=== PATIENT | male | born 1940 | race Caucasian/White ===

== ENCOUNTER 2016-07-03 05:46 | Inpatient (IN) | payer MEDICARE, OTHER ==
[2016-06-19 11:59] VITALS: BP 110/70
--- NOTE | 2016-07-01 16:23 | HPE ---
DATE OF SCHEDULED ADMISSION: 07/03/2016 HISTORY OF PRESENT ILLNESS: This is a pleasant male with continuing symptomatic right hip osteoarthritis. He has consented for right total hip arthroplasty per Dr. Ryan Pisano. Medically he was evaluated for optimization with Dr. Gonzalez and Dr. Bolaños. Per patient, he was cleared. I am still awaiting documentation. X-rays are consistent with advanced osteoarthritis. ALLERGIES: None known to drugs. CURRENT MEDICATIONS: - irbesartan 300 mg - Eliquis 5 mg - oxycodone acetaminophen 5-325 mg - Xanax - metoprolol succinate ER 25 mg - hydrochlorothiazide 12.5 mg - pravastatin sodium 10 mg MEDICAL PROBLEM LIST: Symptomatic right hip osteoarthritis. Hypertension. Hypercholesteremia. Some sort of vascular event. I asked him if he had a stroke. He states he thinks it was a transient ischemic attack (TIA) and not a legitimate stroke event. SURGICAL HISTORY: Surgical history is pertinent for a right total knee arthroplasty, back surgery, left leg tumor. FAMILY HISTORY: Parents due to natural causes. SOCIAL HISTORY: Denies ever smoking. No ethanol intake or illicit drugs. REVIEW OF SYSTEMS: Denies chest pain, shortness of breath, dyspnea on exertion, fever, chills, malaise, upper respiratory or urinary tract symptoms. PHYSICAL EXAMINATION: Height 5 feet 4 inches. Weight 250. Temperature 97.4, blood pressure 132/60, pulse 72, respirations 20. This is a pleasant obese male in no acute distress. Alert and times three. Mood and affect are appropriate. He is ambulating with favoring of his left lower extremity, antalgia about his right hip. Right hip range of motion is limited with pain throughout range. Bilateral lower extremities are benign, noninfectious looking. Bowel sounds times four. He does have some hardening of the abdomen secondary to central adiposity. Chest rises symmetrically. Lungs: Clear to auscultation. Neck: Supple. Negative jugular venous distention (JVD) or bruits. Normocephalic. EKG: I did not have access to that today. Chest x-ray as read by Suyapa Huston. Impression showed cardiac silhouette is borderline enlarged in size with left ventricular prominence, unchanged. Small amount of bibasilar atelectasis/fibrotic scarring, right greater than left. Sclerotic density projected over right proximal humeral shaft, mostly omitted from view. I then was able to find the EKG, as read by Dr. Shi, which showed sinus bradycardia with first-degree AV block, moderate voltage criteria for LVH, consider normal variant. LABORATORY: Labs showed a high urine auto bacteria 1+. Glucose was 164 fasting. BUN 22, AST/SGOT was 13, alkaline phosphatase 124. Platelet count 127. ESR 25. Platelets were 127. Nasal sinus culture showed few Staphylococcus aureus. IMPRESSION: 1. Symptomatic right hip osteoarthritis. 2. The patient consented for a right total hip arthroplasty per Dr. Ryan Pisano. 3. Medical optimization per Dr. Gonzalez and Dr. Bolaños. 4. appliance service representative to operating room (OR) 2 grams IV Kefzol in OR. 5. Sequential compression device (SCD). 6. Bactroban and Hibiclens wash protocol per positive nasal sinus culture for Methicillin susceptible Staphylococcus aureus. MTDD
[2016-07-03] VITALS (7 sets, daily range): BP systolic 131–148; BP diastolic 63–90
[~2016-07-03] VITALS: Ht 167.6 cm; Wt 115.0 kg
[~2016-07-03 05:46] MED LIST: /PRAV20TA PO; /WARF25TA PO; ADVI200C PO; AMLO5TAB2 PO; ASPI81TA2; ASPI81TA85 PO; ATEN100T PO; ATEN25TA PO; CIPR-250 PO; ELIQ5TAB PO; HYDR12CA PO; IRBE150T12 PO; METF500T PO; METO25TA74 PO; PERC10TA PO; PRAV10TA3 PO; TUMS500C PO; TYLE325T5 PO; ZETI10TA2 PO; ZETI10TA21 PO; [UNRECOGNIZED DRUG - OTHER] OR; amlodipine OR
[2016-07-03] MEDS ORDERED: LR 1,000 ML IV SCH ×2 (06:30→10:15)
[2016-07-03] MEDS ORDERED: COUM1TAB17 PO (06:43)
[2016-07-03] MEDS ORDERED: fentaNYL 100 MCG/2 ML INJECTION (J3010) As Ordered ONE ×3 (07:09→11:32)
[2016-07-03] MEDS ORDERED: BUPIVACAINE HCL 0.25% 30 ML VIAL As Ordered ONE (07:09)
[2016-07-03] MEDS ORDERED: BUPIVACAINE HCL 0.5% 10 ML VIAL As Ordered ONE (07:09)
[2016-07-03] MEDS ORDERED: TRANEXAMIC ACID 100 MG/ML 10ML VIAL As Ordered ONE ×2 (07:09→11:32)
[2016-07-03] MEDS ORDERED: ceFAZolin 1GM INJ (J0690) As Ordered ONE (07:10)
[2016-07-03] MEDS ORDERED: EPINEPHrine INJ 1 MG/ML 1ML VIAL/AMP As Ordered ONE (07:10)
[2016-07-03] MEDS ORDERED: ceFAZolin 2 GM/D5W 50 ML IV BAG (J0690) As Ordered ONE (07:25)
[2016-07-03] MEDS ORDERED: LIDOCAINE 2% INJ 100 MG/5 ML SDV (FOR ANES.) As Ordered ONE (08:04)
[2016-07-03] MEDS ORDERED: PROPOFOL 200 MG/20 ML VIAL As Ordered ONE (08:04)
[2016-07-03] MEDS ORDERED: ePHEDrine SULFATE 25 MG/5 ML(5MG/ML) SYRINGE As Ordered ONE ×2 (08:04→08:08)
[2016-07-03] MEDS ORDERED: MIDAZOLAM INJ 2 MG/2 ML VIAL (J2250) As Ordered ONE (08:04)
[2016-07-03] MEDS ORDERED: PHENYLephrine HCL 500 MCG/5 ML (100MCG/ML) SYRINGE (J2370) As Ordered ONE (08:05)
[2016-07-03] MEDS ORDERED: ceFAZolin 1GM INJ (J0690) IR ONE (08:12)
[2016-07-03] MEDS ORDERED: BUPIVACAINE HCL 0.5% 10 ML VIAL XX ONE (08:12)
[2016-07-03] MEDS ORDERED: fentaNYL 100 MCG/2 ML INJECTION (J3010) XX ONE (08:12)
[2016-07-03] MEDS ORDERED: EPINEPHrine INJ 1 MG/ML 1ML VIAL/AMP XX ONE (08:12)
[2016-07-03] MEDS ORDERED: TRANEXAMIC ACID 100 MG/ML 10ML VIAL XX ONE (08:12)
[2016-07-03] MEDS ORDERED: BUPIVACAINE HCL 0.25% 30 ML VIAL XX ONE (08:12)
[2016-07-03] MEDS ORDERED: DESFLURANE 240 ML INHALANT As Ordered ONE (08:17)
[2016-07-03] MEDS ORDERED: MORPHINE PCA 1MG/ML 100ML CADD As Ordered ONE (09:39)
[2016-07-03] MEDS ORDERED: diphenhydrAMINE INJ 50MG/ML VIAL (J1200) IV PRN (10:15)
[2016-07-03] MEDS ORDERED: MORPHINE PCA 1MG/ML 100ML CADD IV PRN (10:15)
[2016-07-03] MEDS ORDERED: ONDANSETRON 4MG/2ML VIAL (J2405) IV PRN ×2 (10:15)
[2016-07-03] MEDS ORDERED: fentaNYL 100 MCG/2 ML INJECTION (J3010) IV PRN (10:15)
[2016-07-03] MEDS ORDERED: PATIENT IS CURRENTLY ON AN ON-Q PAIN BUSTER PAIN RELIEF SYSTEM XX SCH (10:15)
[2016-07-03] MEDS ORDERED: NALBUPHINE HCL 10 MG/ML AMP (J2300) IV PRN (10:15)
[2016-07-03] MEDS ORDERED: NALOXONE INJ 0.4 MG/1 ML VIAL (J2310) IV PRN (10:15)
[2016-07-03] MEDS ORDERED: PERCOCET 5MG/325MG TAB PO PRN (10:15)
[2016-07-03] MEDS ORDERED: HYDROmorphone HCL 1 MG/ML SYRINGE (J1170) IV PRN (10:15)
[2016-07-03] MEDS ORDERED: EPIDURAL/PCA KEYS XX PRN (10:15)
[2016-07-03] MEDS ORDERED: ACETAMINOPHEN TAB 650MG DOSE (2X325MG) PO PRN (14:15)
[2016-07-03] MEDS ORDERED: FLEET ENEMA PR PRN (14:15)
[2016-07-03] MEDS: D5W/0.45% SODIUM CHLORIDE 1,000 ML IV SCH ×2 (14:39→22:15)
[2016-07-03] MEDS ORDERED: WARFARIN SOD 5 MG TAB PO SCH (17:00)
[2016-07-03] MEDS: PRAVASTATIN 10 MG TAB PO SCH (19:55)
[2016-07-04 02:00] VITALS: BP 137/64
[2016-07-04 06:00] VITALS: BP 154/67
[2016-07-04] MEDS ORDERED: ONDANSETRON 4 MG TAB (S0181) PO PRN (06:15)
[2016-07-04 06:50] LABS: MEAN CORPUSCULAR HEMOGLOBIN 30.4 pg (27.0-33.0); MEAN CORPUSCULAR VOLUME 89.5 fl (80.0-96.0); RED CELL DISTRIBUTION WIDTH 15.1 % (11.5-14.5); WHITE BLOOD COUNT 8.6 K/mm3 (4.0-10.0)
[2016-07-04 06:56] LABS: INR 1.14
[2016-07-04 07:13] LABS: ANION GAP 9 MEQ/L (8-16); BLOOD UREA NITROGEN 16 MG/DL (7-18); CARBON DIOXIDE LEVEL 27 MEQ/L (21-32); CHLORIDE LEVEL 102 MEQ/L (98-107); CREATININE FOR GFR 1.03 MG/DL (0.70-1.30); GLOMERULAR FILTRATION RATE > 60.0 (>42); GLUCOSE, FASTING 210 MG/DL (83-110); POTASSIUM SERUM 3.5 MEQ/L (3.5-5.1); SODIUM LEVEL 138 MEQ/L (136-145)
[2016-07-04] MEDS: METOPROLOL SUCC *XL* 25MG TAB (TopROL *XL*) PO SCH (07:52)
[2016-07-04] MEDS: MOM 30ML SUSPENSION UDC PO SCH (07:52)
[2016-07-04] MEDS: SENOKOT S TAB PO SCH ×2 (07:52→20:32)
[2016-07-04] MEDS: MIRALAX *UNIT DOSE* 17GM PACKET PO SCH (07:52)
[2016-07-04] MEDS: PERCOCET 5MG/325MG TAB PO PRN ×3 (07:54→22:53)
[2016-07-04] MEDS: IRBESARTAN 150 MG TAB PO SCH (09:48)
[2016-07-04 10:00] VITALS: BP 132/60
--- NOTE | 2016-07-04 10:17 | REP ---
RIGHT HIP, POSTOPERATIVE AP AND LATERAL VIEWS: There are no comparisons. There is a total hip arthroplasty with the components tightly applied and in satisfactory positions and alignment. Skin juice are incidentally noted. Unreviewed
[2016-07-04] MEDS ORDERED: HEPARIN SOD (PORCINE) 5000 UNITS/ML VIAL IV PRN (13:30)
--- NOTE | 2016-07-04 13:45 | IPNPDOC ---
Assessment/Plan Date Seen The patient was seen on 07/03/16. Problems Problems: (1) Status post total hip replacement, right Status: Acute Problem Text: elective total hip replacement , by Dr posada , surgery was uneventful. pain control and dvt prophylaxis as per ortho team. (2) LEI on CPAP Status: Chronic (3) HTN (hypertension) Status: Chronic Problem Text: continue metoprolol , irbesartan (4) Pulmonary embolism Onset Date: 07/13/2014 Status: Resolved Problem Text: on eliquis as outpatient , restarting on anticoagulation as per surgeon (5) Morbid obesity Status: Chronic Plan / VTE VTE Prophylaxis Ordered?: Yes Subjective Review of Systems CC/HPI The patient is a 75-year-old male admitted with a reason for visit of Right Hip Arthritis. Events since last encounter no complaints had elective right total hip replacement. no chest pain or sob , no nausea or vomiting. Objective Physical Examination General Exam: Positive: Alert, No Acute Distress Eye Exam: Positive: Conjunctiva & lids normal, EOMI, PERRLA, Negative: Sclera icteric ENT Exam: Positive: Atraumatic, Mucous membr. moist/pink, Pharynx Normal Neck Exam: Positive: Supple, Negative: JVD, thyromegaly Chest Exam: Positive: Clear to auscultation, Normal air movement Heart Exam: Positive: Normal S1, Normal S2, Rate Normal, Regular Rhythm, Negative: Murmurs, Rubs Abdomen Exam: Positive: Normal bowel sounds, Soft, Negative: Hepatospenomegaly, Tenderness Vital Signs/I&O Vital Signs Date Time Temp Pulse Resp B/P Pulse Ox O2 Delivery O2 Flow Rate FiO2 07/03/16 12:54 98.0 66 18 120/58 95 Nasal Cannula 3 GERARDO NOGUEIRA MD Jul 03, 2016 14:30
--- NOTE | 2016-07-04 13:53 | IPNPDOC ---
Assessment/Plan Date Seen The patient was seen on 07/04/16. Problems Problems: (1) Status post total hip replacement, right Status: Acute Problem Text: elective total hip replacement , by Dr posada , surgery was uneventful. pain control and dvt prophylaxis as per ortho team. (2) LEI on CPAP Status: Chronic (3) HTN (hypertension) Status: Chronic Problem Text: continue metoprolol , irbesartan (4) Pulmonary embolism Onset Date: 07/13/2014 Status: Resolved Problem Text: on eliquis as outpatient , now started on coumadin , In view of his unprovoked PE he possibly hypercoagulable state so will need to be on heparin overlap till inr is therapeutic. (5) Morbid obesity Status: Chronic Plan / VTE VTE Prophylaxis Ordered?: Yes Subjective Review of Systems CC/HPI The patient is a 75-year-old male admitted with a reason for visit of Right Hip Arthritis. Events since last encounter no complaints this am. Objective Physical Examination General Exam: Positive: Alert, No Acute Distress Eye Exam: Positive: Conjunctiva & lids normal, EOMI, PERRLA, Negative: Sclera icteric ENT Exam: Positive: Atraumatic, Mucous membr. moist/pink, Pharynx Normal Neck Exam: Positive: Supple, Negative: JVD, thyromegaly Chest Exam: Positive: Clear to auscultation, Normal air movement Heart Exam: Positive: Normal S1, Normal S2, Rate Normal, Regular Rhythm, Negative: Murmurs, Rubs Abdomen Exam: Positive: Normal bowel sounds, Soft, Negative: Hepatospenomegaly, Tenderness Vital Signs/I&O Vital Signs Date Time Temp Pulse Resp B/P Pulse Ox O2 Delivery O2 Flow Rate FiO2 07/04/16 10:00 99.6 72 19 132/60 91 Room Air 07/04/16 06:00 2.0 I&O- Last 24 Hours up to 6 AM 07/04/16 06:00 Intake Total 3105 ml Output Total 1750 ml Balance 1355 ml Laboratory Data Labs 24H Laboratory Tests 2 07/04/16 06:21: Anion Gap 9, Blood Urea Nitrogen 16, Creatinine 1.03, Sodium Level 138, Potassium Level 3.5, Chloride Level 102, Carbon Dioxide Level 27, Calcium Level 8.0L, Glomerular Filtration Rate > 60.0, Prothromb Time International Ratio 1.14 , Prothrombin Time 14.7H CBC/BMP Laboratory Tests 07/04/16 06:21 Calcium Level 8.0 L, Red Blood Count 4.41, Mean Corpuscular Volume 89.5, Mean Corpuscular Hemoglobin 30.4, Mean Corpuscular Hemoglobin Concent 34.0, Red Cell Distribution Width 15.1 H GERARDO NOGUEIRA MD Jul 04, 2016 13:53
[2016-07-04 14:00] VITALS: BP 141/64
--- NOTE | 2016-07-04 15:02 | RO ---
DATE OF PROCEDURE: 07/03/2016 PREPROCEDURE DIAGNOSIS: Right hip osteoarthritis. POSTPROCEDURE DIAGNOSIS: Right hip osteoarthritis. OPERATION PERFORMED: Right total hip replacement. SURGEON: Ryan Pisano MD ART INSTALLER: MEL Jacobo HISTORY: A 75-year-old male with persistent arthritic pain in his hip presents for elective surgery. FINDINGS AT SURGERY: The patient had a 56 cup, #4 [place] stem, 36 +1 head and neck combination. ESTIMATED BLOOD LOSS: Blood loss around 200 mL. Mr. Sen retracted vital structures and manipulated the leg to expedite the procedure. DESCRIPTION OF PROCEDURE: After a spinal anesthetic, the Reis catheter was placed, IV antibiotics were administered, and the patient was positioned in the [place] right side up. Axial roll was placed. Then the leg prepped and draped. Preoperative identification took place and then a anterolateral incision made. Bleeding points were controlled electrocautery. There was approximately 2 inches of adipose tissue to go through until we found the IT band and that was divided in line with its fibers. The abductors reflected anteriorly. The labrum was incised and the hip dislocated. Following this, the intermedullary canal was opened. The head neck was divided and then the acetabulum was exposed and reamed from a 45 up to 55 mm. At that point, we had good bleeding bone. We were almost to the cotyloid fossa but not quite. The wound was thoroughly irrigated. A permanent 56 mm cup installed. [place] hole eliminator installed and the plastic was installed, it was 36 inside diameter. Then the femoral canal was broached to a #4. Trial reduction was performed. All trial components were removed and the permanent stem impacted after thorough irrigation. The hip was then reduced, and the wound irrigated. The labrum was and capsule were closed. The pain catheter was installed. The TXA solution was used to irrigate the wound. Then the abductors were repaired back to the greater trochanteric area with heavy PDS suture, the IT band closed with the same suture and subcutaneous closed in layers with #2-0 PDS. Desiree for skin. Dry dressing was applied. The PainBuster primed with 10 mL of Marcaine with fentanyl. The patient was then rolled flat. Abduction pillow applied. The sequential compression stockings, which had been operated on the down leg were now applied to the operative leg.
[2016-07-04] MEDS: HEPARIN DRIP 25,000 UNITS in APPROPRIATE DILUENT 1 EA IV SCH (15:41)
[2016-07-04] MEDS ORDERED: WARFARIN SOD 5 MG TAB PO ONE (17:00)
[2016-07-04] MEDS: PRAVASTATIN 10 MG TAB PO SCH (20:32)
[2016-07-04 22:00] VITALS: BP 140/64
[2016-07-05] MEDS: PERCOCET 5MG/325MG TAB PO PRN ×4 (03:21→21:24)
[2016-07-05 05:41] LABS: INR 1.39
[2016-07-05 06:00] VITALS: BP 119/59
[2016-07-05] MEDS: HEPARIN DRIP 25,000 UNITS in APPROPRIATE DILUENT 1 EA IV SCH ×2 (06:15→11:45)
[2016-07-05 07:57] LABS: BASO # 0.1 K/mm3 (0.0-0.2); BASO % 1.1 % (0.0-1.0); EOS # 0.3 K/mm3 (0.0-0.50); EOS % 3.6 % (0.0-3.0); LARGE UNSTAINED CELL # 0.2 K/mm3 (0.0-0.4); LARGE UNSTAINED CELL % 1.8 % (0.0-4.0); LYMPH # 1.7 K/mm3 (1.5-4.5); LYMPH % 18.1 % (24.0-44.0); MEAN CORPUSCULAR HEMOGLOBIN 29.5 pg (27.0-33.0); MEAN CORPUSCULAR HGB CONC 34.3 g/dl (32.0-36.5); MEAN CORPUSCULAR VOLUME 86.1 fl (80.0-96.0); MONO # 0.3 K/mm3 (0.0-0.8); MONO % 3.9 % (0.0-5.0); NEUTROPHILS # 6.3 K/mm3 (1.8-7.7); NEUTROPHILS % 71.6 % (36.0-66.0); PLATELET COUNT, AUTOMATED 102 k/mm3 (150-450); RED CELL DISTRIBUTION WIDTH 15.2 % (11.5-14.5); WHITE BLOOD COUNT 8.8 K/mm3 (4.0-10.0)
[2016-07-05] MEDS ORDERED: MAGNESIUM CITRATE 300 ML BTL PO ONE (08:15)
[2016-07-05 08:24] LABS: ANION GAP 9 MEQ/L (8-16); BLOOD UREA NITROGEN 17 MG/DL (7-18); CALCIUM LEVEL 8.5 MG/DL (8.8-10.2); CARBON DIOXIDE LEVEL 26 MEQ/L (21-32); CHLORIDE LEVEL 102 MEQ/L (98-107); CREATININE FOR GFR 0.98 MG/DL (0.70-1.30); GLOMERULAR FILTRATION RATE > 60.0 (>42); GLUCOSE, FASTING 174 MG/DL (83-110); SODIUM LEVEL 137 MEQ/L (136-145)
[2016-07-05] MEDS ORDERED: MAGNESIUM CITRATE 300 ML BTL PO PRN (08:30)
[2016-07-05] MEDS: MIRALAX *UNIT DOSE* 17GM PACKET PO SCH (08:35)
[2016-07-05] MEDS: MOM 30ML SUSPENSION UDC PO SCH (08:35)
[2016-07-05] MEDS: IRBESARTAN 150 MG TAB PO SCH (08:36)
[2016-07-05] MEDS: SENOKOT S TAB PO SCH ×2 (08:36→21:24)
[2016-07-05] MEDS: METOPROLOL SUCC *XL* 25MG TAB (TopROL *XL*) PO SCH (08:37)
[2016-07-05] MEDS ORDERED: PREVNAR 13 VACCINE SYRINGE (CPT CODE:90670) IM ONE (09:00)
--- NOTE | 2016-07-05 12:05 | IPNPDOC ---
Assessment/Plan Date Seen The patient was seen on 07/05/16. Problems Problems: (1) Status post total hip replacement, right Status: Acute Problem Text: elective total hip replacement , by Dr posada , surgery was uneventful. pain control and dvt prophylaxis as per ortho team. (2) Pulmonary embolism Onset Date: 07/13/2014 Status: Resolved Problem Text: Was on eliquis as outpatient , now started on coumadin , In view of his unprovoked PE he possibly has hypercoagulable state so will need to be on heparin overlap till inr is therapeutic. (3) LEI on CPAP Status: Chronic (4) HTN (hypertension) Status: Chronic Problem Text: continue metoprolol , irbesartan (5) Morbid obesity Status: Chronic Plan / VTE VTE Prophylaxis Ordered?: Yes Subjective Review of Systems CC/HPI The patient is a 75-year-old male admitted with a reason for visit of Right Hip Arthritis. Events since last encounter no complaints this am . no bleeding , no chest pain or SOB. Objective Physical Examination General Exam: Positive: Alert, No Acute Distress Eye Exam: Positive: Conjunctiva & lids normal, EOMI, PERRLA, Negative: Sclera icteric ENT Exam: Positive: Atraumatic, Mucous membr. moist/pink, Pharynx Normal Neck Exam: Positive: Supple, Negative: JVD, thyromegaly Chest Exam: Positive: Clear to auscultation, Normal air movement Heart Exam: Positive: Normal S1, Normal S2, Rate Normal, Regular Rhythm, Negative: Murmurs, Rubs Abdomen Exam: Positive: Normal bowel sounds, Soft, Negative: Hepatospenomegaly, Tenderness Vital Signs/I&O Vital Signs Date Time Temp Pulse Resp B/P Pulse Ox O2 Delivery O2 Flow Rate FiO2 07/05/16 09:10 18 07/05/16 08:37 67 119/59 07/05/16 06:00 99.5 92 Room Air 07/04/16 06:00 2.0 I&O- Last 24 Hours up to 6 AM 07/05/16 06:00 Intake Total 1800 ml Output Total 550 ml Balance 1250 ml Laboratory Data Labs 24H Laboratory Tests 2 07/04/16 14:10: Activated Partial Thromboplast Time 32.3 07/04/16 21:45: Activated Partial Thromboplast Time 48.9H 07/05/16 05:12: Prothromb Time International Ratio 1.39, Prothrombin Time 17.2H 07/05/16 07:02: Activated Partial Thromboplast Time > 240.0*H 07/05/16 07:47: Anion Gap 9, White Blood Count 8.8, Red Blood Count 4.86, Hemoglobin 14.3, Hematocrit 41.9L, Mean Corpuscular Volume 86.1, Mean Corpuscular Hemoglobin 29.5 , Mean Corpuscular Hemoglobin Concent 34.3, Red Cell Distribution Width 15.2H, Platelet Count 102L, Neutrophils (%) (Auto) 71.6H, Lymphocytes (%) (Auto) 18.1L , Monocytes (%) (Auto) 3.9, Eosinophils (%) (Auto) 3.6H, Basophils (%) (Auto) 1.1H, Neutrophils # (Auto) 6.3, Lymphocytes # (Auto) 1.7, Monocytes # (Auto) 0.3 , Eosinophils # (Auto) 0.3, Basophils # (Auto) 0.1, Blood Urea Nitrogen 17, Creatinine 0.98, Sodium Level 137, Potassium Level 4.0, Chloride Level 102, Carbon Dioxide Level 26, Calcium Level 8.5L, Glomerular Filtration Rate > 60.0, Large Unclassified Cells # 0.2, Large Unclassified Cells % 1.8 CBC/BMP Laboratory Tests 07/05/16 07:47 Calcium Level 8.5 L, Red Blood Count 4.86, Mean Corpuscular Volume 86.1, Mean Corpuscular Hemoglobin 29.5, Mean Corpuscular Hemoglobin Concent 34.3, Red Cell Distribution Width 15.2 H, Neutrophils (%) (Auto) 71.6 H, Lymphocytes (%) (Auto ) 18.1 L, Monocytes (%) (Auto) 3.9, Eosinophils (%) (Auto) 3.6 H, Basophils (%) (Auto) 1.1 H, Neutrophils # (Auto) 6.3, Lymphocytes # (Auto) 1.7, Monocytes # ( Auto) 0.3, Eosinophils # (Auto) 0.3, Basophils # (Auto) 0.1 GERARDO NOGUEIRA MD Jul 05, 2016 12:05
[2016-07-05 14:00] VITALS: BP 135/63
[2016-07-05] MEDS ORDERED: WARFARIN SOD 3 MG TAB PO SCH (17:00)
[2016-07-05] MEDS: PRAVASTATIN 10 MG TAB PO SCH (21:24)
[2016-07-05 22:00] VITALS: BP 130/61
[2016-07-06 06:00] VITALS: BP 128/60
[2016-07-06 06:26] LABS: INR 1.69
[2016-07-06] MEDS: HEPARIN DRIP 25,000 UNITS in APPROPRIATE DILUENT 1 EA IV SCH ×2 (07:58→15:17)
[2016-07-06] MEDS: MIRALAX *UNIT DOSE* 17GM PACKET PO SCH (08:53)
[2016-07-06] MEDS: MOM 30ML SUSPENSION UDC PO SCH (08:53)
[2016-07-06] MEDS: SENOKOT S TAB PO SCH ×2 (08:54→20:15)
[2016-07-06] MEDS: PERCOCET 5MG/325MG TAB PO PRN ×3 (08:54→20:15)
[2016-07-06] MEDS: METOPROLOL SUCC *XL* 25MG TAB (TopROL *XL*) PO SCH (08:54)
[2016-07-06] MEDS: IRBESARTAN 150 MG TAB PO SCH (08:54)
--- NOTE | 2016-07-06 13:51 | IPNPDOC ---
Assessment/Plan Date Seen The patient was seen on 07/06/16. Problems Problems: (1) Status post total hip replacement, right Status: Acute Problem Text: elective total hip replacement , by Dr posada , surgery was uneventful. pain control and dvt prophylaxis as per ortho team. (2) Pulmonary embolism Onset Date: 07/13/2014 Status: Resolved Problem Text: Was on eliquis as outpatient , now started on coumadin , In view of his unprovoked PE he possibly has hypercoagulable state so will need to be on heparin overlap till inr is therapeutic. (3) LEI on CPAP Status: Chronic (4) HTN (hypertension) Status: Chronic Problem Text: continue metoprolol , irbesartan (5) Morbid obesity Status: Chronic Plan / VTE VTE Prophylaxis Ordered?: Yes Subjective Review of Systems CC/HPI The patient is a 75-year-old male admitted with a reason for visit of Right Hip Arthritis. Events since last encounter no complaints. Objective Physical Examination General Exam: Positive: Alert, No Acute Distress Eye Exam: Positive: Conjunctiva & lids normal, EOMI, PERRLA, Negative: Sclera icteric ENT Exam: Positive: Atraumatic, Mucous membr. moist/pink, Pharynx Normal Neck Exam: Positive: Supple, Negative: JVD, thyromegaly Chest Exam: Positive: Clear to auscultation, Normal air movement Heart Exam: Positive: Normal S1, Normal S2, Rate Normal, Regular Rhythm, Negative: Murmurs, Rubs Abdomen Exam: Positive: Normal bowel sounds, Soft, Negative: Hepatospenomegaly, Tenderness Vital Signs/I&O Vital Signs Date Time Temp Pulse Resp B/P Pulse Ox O2 Delivery O2 Flow Rate FiO2 07/06/16 13:10 16 07/06/16 08:54 128/60 07/06/16 06:00 98.8 63 98 Room Air 07/04/16 06:00 2.0 I&O- Last 24 Hours up to 6 AM 07/06/16 06:00 Intake Total 1986 ml Output Total 1150 ml Balance 836 ml Laboratory Data Labs 24H Laboratory Tests 2 07/05/16 19:13: Activated Partial Thromboplast Time 101.8H 07/06/16 05:25: Activated Partial Thromboplast Time 159.2*H, Prothromb Time International Ratio 1.69, Prothrombin Time 20.0H 07/06/16 11:05: Activated Partial Thromboplast Time 80.9H GERARDO NOGUEIRA MD Jul 06, 2016 13:50
[2016-07-06 14:00] VITALS: BP 136/65
[2016-07-06] MEDS ORDERED: WARFARIN SOD 10 MG TAB PO ONE (17:00)
[2016-07-06] MEDS: PRAVASTATIN 10 MG TAB PO SCH (20:15)
[2016-07-06 22:00] VITALS: BP 153/69
[2016-07-07 06:00] VITALS: BP 143/70
[2016-07-07 06:29] LABS: INR 2.05
[2016-07-07] MEDS ORDERED: PERC5TAB6 PO (07:42)
[2016-07-07] MEDS ORDERED: COUM2.5T11 PO (07:42)
[2016-07-07] MEDS: IRBESARTAN 150 MG TAB PO SCH (08:53)
[2016-07-07] MEDS: MIRALAX *UNIT DOSE* 17GM PACKET PO SCH (08:53)
[2016-07-07] MEDS: MOM 30ML SUSPENSION UDC PO SCH (08:53)
[2016-07-07] MEDS: SENOKOT S TAB PO SCH ×2 (08:54→19:57)
[2016-07-07] MEDS: METOPROLOL SUCC *XL* 25MG TAB (TopROL *XL*) PO SCH (08:54)
[2016-07-07] MEDS: PERCOCET 5MG/325MG TAB PO PRN ×3 (08:54→19:57)
--- NOTE | 2016-07-07 11:50 | IPNPDOC ---
Assessment/Plan Date Seen The patient was seen on 07/07/16. Problems Problems: (1) Status post total hip replacement, right Status: Acute Problem Text: elective total hip replacement , by Dr posada , surgery was uneventful. pain control and dvt prophylaxis as per ortho team. (2) Pulmonary embolism Onset Date: 07/13/2014 Status: Resolved Problem Text: Was on eliquis as outpatient , now started on coumadin , INR therapeutic this am will stop heparin drip. (3) LEI on CPAP Status: Chronic (4) HTN (hypertension) Status: Chronic Problem Text: continue metoprolol , irbesartan (5) Morbid obesity Status: Chronic Plan / VTE VTE Prophylaxis Ordered?: Yes Subjective Review of Systems CC/HPI The patient is a 75-year-old male admitted with a reason for visit of Right Hip Arthritis. Events since last encounter no complaints this am. Objective Physical Examination General Exam: Positive: Alert, No Acute Distress Eye Exam: Positive: Conjunctiva & lids normal, EOMI, PERRLA, Negative: Sclera icteric ENT Exam: Positive: Atraumatic, Mucous membr. moist/pink, Pharynx Normal Neck Exam: Positive: Supple, Negative: JVD, thyromegaly Chest Exam: Positive: Clear to auscultation, Normal air movement Heart Exam: Positive: Normal S1, Normal S2, Rate Normal, Regular Rhythm, Negative: Murmurs, Rubs Abdomen Exam: Positive: Normal bowel sounds, Soft, Negative: Hepatospenomegaly, Tenderness Vital Signs/I&O Vital Signs Date Time Temp Pulse Resp B/P Pulse Ox O2 Delivery O2 Flow Rate FiO2 07/07/16 09:24 18 07/07/16 08:54 62 143/70 07/07/16 06:00 99.2 94 NIPPV (BIPAP/CPAP) 07/04/16 06:00 2.0 I&O- Last 24 Hours up to 6 AM 07/07/16 06:00 Intake Total 3144 ml Output Total 2925 ml Balance 219 ml Laboratory Data Labs 24H Laboratory Tests 2 07/06/16 17:22: Activated Partial Thromboplast Time 76.8H 07/07/16 06:15: Activated Partial Thromboplast Time 108.4H, Prothromb Time International Ratio 2.05, Prothrombin Time 23.2H GERARDO NOGUEIRA MD Jul 07, 2016 11:50
[2016-07-07 14:00] VITALS: BP 143/68
[2016-07-07] MEDS ORDERED: WARFARIN SOD 5 MG TAB PO ONE (17:00)
[2016-07-07] MEDS: PRAVASTATIN 10 MG TAB PO SCH (19:57)
[2016-07-07 22:00] VITALS: BP 157/73
[2016-07-08 06:00] VITALS: BP 134/71
[2016-07-08 06:34] LABS: INR 2.02
[2016-07-08] MEDS: MIRALAX *UNIT DOSE* 17GM PACKET PO SCH (09:00)
[2016-07-08] MEDS: MOM 30ML SUSPENSION UDC PO SCH (09:00)
[2016-07-08] MEDS: IRBESARTAN 150 MG TAB PO SCH (10:23)
[2016-07-08] MEDS: SENOKOT S TAB PO SCH ×2 (10:23→20:39)
[2016-07-08] MEDS: METOPROLOL SUCC *XL* 25MG TAB (TopROL *XL*) PO SCH (10:24)
[2016-07-08] MEDS: PERCOCET 5MG/325MG TAB PO PRN ×2 (10:24→20:38)
[2016-07-08] MEDS ORDERED: WARFARIN SOD 7.5 MG TAB PO ONE (17:00)
[2016-07-08] MEDS ORDERED: WARFARIN SOD 3 MG TAB PO ONE (17:00)
[2016-07-08] MEDS: PRAVASTATIN 10 MG TAB PO SCH (20:38)
[2016-07-08 22:00] VITALS: BP 157/66
[2016-07-09] MEDS: PERCOCET 5MG/325MG TAB PO PRN ×2 (05:27→10:42)
[2016-07-09 06:00] VITALS: BP 141/65
[2016-07-09 07:02] LABS: INR 2.19
[2016-07-09 08:49] VITALS: BP 141/65
[2016-07-09] MEDS: METOPROLOL SUCC *XL* 25MG TAB (TopROL *XL*) PO SCH (08:49)
[2016-07-09] MEDS: IRBESARTAN 150 MG TAB PO SCH (08:49)
[2016-07-09] MEDS: MIRALAX *UNIT DOSE* 17GM PACKET PO SCH (08:50)
[2016-07-09] MEDS: MOM 30ML SUSPENSION UDC PO SCH (08:50)
[2016-07-09] MEDS: SENOKOT S TAB PO SCH (08:50)
[2016-07-09] MEDS ORDERED: WARFARIN SOD 5 MG TAB PO ONE (17:00)
--- NOTE | 2016-07-15 07:43 | DSES ---
DATE OF ADMISSION: 07/03/2016 DATE OF DISCHARGE: 07/09/2016 ATTENDING PHYSICIAN: Dr. Pisano ADMITTING DIAGNOSIS: Osteoarthritis right hip. OTHER DIAGNOSES: 1. Obesity. 2. Sleep apnea. 3. Hypertension. 4. Elevated lipids. 5. History of transient ischemic attack (TIA). 6. History of pulmonary embolism (PE). DISCHARGE DIAGNOSIS: Osteoarthritis right hip status post right total hip arthroplasty. HISTORY: This is a pleasant, 75-year-old male with progressively worsening right hip pain and stiffness. He failed to improve with conservative management. He was admitted for elective hip replacement on right side. OPERATION PERFORMED: Elective right total hip arthroplasty. HOSPITAL COURSE: Patient was admitted on day of surgery underwent the above listed surgical procedure that was without complications. During the hospital course he did struggle with the requirements of physical therapy, although his pain was controlled on day of discharge. He had improved to the point that he could be moved to a subacute rehabilitation. On day of discharge, he was also weightbearing as tolerated on his right lower extremity. He will use adjusted dose Coumadin and thromboembolic deterrent (SANDRA) stockings for 30 days postoperative for deep venous thrombosis (DVT) prophylaxis. He will resume his preoperative medications and diet. He was given instructions to include but not limited to wound monitoring and activity limitations. He will use oral pain medications for pain control. He will followup in our office in 10-14 days for surgical followup. Please refer the medical record for further details.
== END 2016-07-09 11:55 | DRG 470 ==
LOC: M OR 05:46 → M MS5PR 13:50
PROVIDERS: ADMIT Orthopaedic Surgery; ATTEND Orthopaedic Surgery
PROC: 0SR902A Replacement of Right Hip Joint with Metal on Polyethylene Synthetic Substitute, Uncemented, Open Approach (ICD-10-PCS; principal; 2016-07-03 07:30)
DX: M16.11 Unilateral primary osteoarthritis, right hip (principal); Z68.41 Body mass index [BMI] 40.0-44.9, adult; I10 Essential (primary) hypertension; E78.00 Pure hypercholesterolemia, unspecified; Z96.651 Presence of right artificial knee joint; Z79.01 Long term (current) use of anticoagulants; Z79.899 Other long term (current) drug therapy; G47.33 Obstructive sleep apnea (adult) (pediatric); E66.01 Morbid (severe) obesity due to excess calories; Z86.711 Personal history of pulmonary embolism

== ENCOUNTER 2016-12-07 13:18 | Emergency (ER) | payer MEDICARE, OTHER ==
[~2016-12-07] VITALS: Ht 167.6 cm; Wt 117.9 kg
[~2016-12-07 13:18] MED LIST changes: +COUM1TAB17 PO; +COUM2.5T11 PO; +PERC5TAB6 PO
[2016-12-07] MEDS ORDERED: ELIQ5TAB (13:26)
[2016-12-07] MEDS ORDERED: NS 1,000 ML IV ONE (14:00)
[2016-12-07 14:25] LABS: VENOUS O2 SATURATION 83.9 % (60.0-80.0); VENOUS PARTIAL PRESSURE CO2 35.8 mmHg (38.0-50.0); VENOUS PARTIAL PRESSURE O2 48.4 mmHg (30.0-50.0); VENOUS STANDARD HCO3 21.7 MEQ/L; VENOUS TOTAL CO2 22.3 MEQ/L (24.0-28.0)
[2016-12-07 14:41] LABS: ADD MORPHOLOGY? YES; BASO % 0.6 % (0.0-1.0); EOS # 0.2 K/mm3 (0.0-0.50); EOS % 3.7 % (0.0-3.0); LARGE UNSTAINED CELL # 0.1 K/mm3 (0.0-0.4); LARGE UNSTAINED CELL % 1.6 % (0.0-4.0); LYMPH # 1.6 K/mm3 (1.5-4.5); LYMPH % 28.5 % (24.0-44.0); MEAN CORPUSCULAR HEMOGLOBIN 30.1 pg (27.0-33.0); MEAN CORPUSCULAR HGB CONC 34.1 g/dl (32.0-36.5); MEAN CORPUSCULAR VOLUME 88.4 fl (80.0-96.0); MONO # 0.2 K/mm3 (0.0-0.8); MONO % 4.3 % (0.0-5.0); NEUTROPHILS # 3.3 K/mm3 (1.8-7.7); NEUTROPHILS % 61.3 % (36.0-66.0); PLATELET COUNT, AUTOMATED 134 k/mm3 (150-450); RED CELL DISTRIBUTION WIDTH 14.3 % (11.5-14.5); WHITE BLOOD COUNT 5.4 K/mm3 (4.0-10.0)
[2016-12-07] MEDS ORDERED: METF500T PO (14:53)
[2016-12-07] MEDS ORDERED: BLOOKIT20 XX (14:55)
[2016-12-07 15:15] LABS: ALBUMIN 3.6 GM/DL (3.2-5.2); ALBUMIN/GLOBULIN RATIO 0.92 (1.00-1.93); BILIRUBIN,DIRECT 0.3 MG/DL (0.0-0.2); BILIRUBIN,TOTAL 1.1 MG/DL (0.2-1.0); CALCIUM LEVEL 9.2 MG/DL (8.8-10.2); CREATININE FOR GFR 1.39 MG/DL (0.70-1.30); GLOMERULAR FILTRATION RATE 52.6 (>42); POTASSIUM SERUM 4.6 MEQ/L (3.5-5.1); TOTAL PROTEIN 7.5 GM/DL (6.4-8.2)
[2016-12-07] MEDS ORDERED: HumuLIN R (REGULAR) INSULIN (NovoLIN R) **100U/ML** PER UNIT IV ONE ×2 (16:00→17:15)
[2016-12-07] MEDS ORDERED: metFORMIN (GLUCOPHAGE) 500 MG TAB PO ONE (18:45)
[2016-12-07 18:49] VITALS: BP 128/58
== END 2016-12-07 18:50 | disposition home or self-care (01) ==
LOC: M ED 13:48
DX: E11.65 Type 2 diabetes mellitus with hyperglycemia (principal); I10 Essential (primary) hypertension; E78.9 Disorder of lipoprotein metabolism, unspecified; G47.30 Sleep apnea, unspecified; Z86.711 Personal history of pulmonary embolism; M51.9 Unspecified thoracic, thoracolumbar and lumbosacral intervertebral disc disorder; Z79.899 Other long term (current) drug therapy; Z79.01 Long term (current) use of anticoagulants

== ENCOUNTER → 2019-10-14 | Outpatient (REF) | payer MEDICARE, OTHER ==
[~2019-10-14] MED LIST changes: -/PRAV20TA PO; -/WARF25TA PO; +ADVI1CAP2 PO; -ADVI200C PO; -AMLO5TAB2 PO; +AMLO5TAB6 PO; +BLOOKIT21 XX; +COUM1TAB18 PO; -COUM2.5T11 PO; +COUM2.5T17 PO; +ELIQ5TAB; -IRBE150T12 PO; +IRBE150T7 PO; +METF500T13 PO; +METO1TAB32 PO; -METO25TA74 PO; +PERC5TAB12 PO; -PERC5TAB6 PO; +PRAV1TAB39 PO; +ZETI10TA16 PO; -ZETI10TA2 PO
== END ==
LOC: M LAB REF 08:59
PROVIDERS: ATTEND Dermatology
DX: C44.310 Basal cell carcinoma of skin of unspecified parts of face (principal)

== ENCOUNTER → 2023-06-09 | Outpatient (CLI) | payer MEDICARE, OTHER ==
[~2023-06-09] MED LIST changes: +AMLO1TAB24 PO; -AMLO5TAB6 PO; -ASPI81TA85 PO; +ASPI81TA86 PO; +EZET10TA58 PO; -ZETI10TA16 PO
== END ==
LOC: M SOG 07:56
PROVIDERS: ATTEND Physician Assistant
DX: M18.0 Bilateral primary osteoarthritis of first carpometacarpal joints (principal); M19.041 Primary osteoarthritis, right hand; M19.042 Primary osteoarthritis, left hand

== ENCOUNTER → 2023-09-11 | Outpatient (CLI) | payer MEDICARE, OTHER ==
[~2023-09-11] MED LIST changes: +IRBE150T27 PO; -IRBE150T7 PO
== END ==
LOC: M PLARAD 10:02
PROVIDERS: ATTEND Orthopaedic Surgery
DX: R26.81 Unsteadiness on feet (principal); M45.2 Ankylosing spondylitis of cervical region; M40.202 Unspecified kyphosis, cervical region; M99.61 Osseous and subluxation stenosis of intervertebral foramina of cervical region